=== PATIENT | male | born 1965 | race Caucasian/White ===

== ENCOUNTER 2016-07-16 15:57 | Emergency (ER) | payer MEDICARE, OTHER ==
--- NOTE | ~2016-07-16 | CR72 ---
[facility] A Service of [facility] & [facility] / [facility] RADIOLOGY TEXT RESULTS PATIENT: SHELLY MONZON LOCATION: [facility] : 63 UNIT #: [id number] AGE: [address]: Adrian Boyle MD SEX: M ORDER DR: [id number] [facility] [address] [place], [place] [address] [id number] MR#: [id number] Acc #: [id number] NAME: SHELLY MONZON : 1965 SEX: M STUDY DATE/TIME: 07/16/2016 14:22 UNIT: [facility] ROOM: STUDY DESCRIPTION: CR Chest Single View Portable Attending Physician: Adrian Boyle M.D. Ordering Physician: Adrian Boyle M.D. Primary Care Physician: Vahid Singer M.D. MEDICAL IMAGING REPORT This report is preliminary unless electronic signature is present EXAM Portable chest INDICATIONS Productive cough for days. COMPARISON 09/22/2010 FINDINGS The lungs are well expanded. No acute infiltrate. Heart size is normal. The visualized osseous structures unremarkable. IMPRESSION No active disease Dictated by... Anup Rashid M.D. THIS IS AN ELECTRONICALLY VERIFIED REPORT Anup Rashid M.D. at 07/17/2016 7:54 AM Victor Manuel TD: 07/16/2016 15:19 JOB #: [id number] MEDICAL IMAGING REPORT Page 1 of 1 COPY
--- NOTE | ~2016-07-16 | EKG ---
PATIENT: SHELLY MONZON UNIT #: [id number] Ventricular Rate: 89 BPM Atrial Rate: 89 BPM P-R Interval: 122 ms QRS Duration: 100 ms Q-T Interval: 368 ms QTC Calculation(Bezet): 447 ms P [place]: 90 degrees Calculated R [place]: 62 degrees Calculated T [place]: 88 degrees Diagnosis Line: Normal sinus rhythm Diagnosis Line: Normal ECG Diagnosis Line: When compared with ECG of 23-SEP-2011 21:42, Diagnosis Line: No significant change was found Diagnosis Line: Confirmed by DEJA ESTES MD ([id number]) on 07/17/2016 Diagnosis Line: 5:01:43 AM INTERPRETING MD: FRANKLYN SUTTON
[2016-07-16 15:41] LABS: BASOPHIL# 0.1 X10e3 (0-0.3); BASOPHIL% 0.4 % (0-2.5); EOSINOPHIL# 0.1 X10e3 (0-0.7); EOSINOPHIL% 0.6 % (0.0-7.0); HEMATOCRIT 40.1 % (38.0-50.0); HEMOGLOBIN 13.2 gm/dL (13.0-16.0); LYMPHOCYTE# 1.4 X10e3 (1.0-3.5); MEAN CELL VOLUME 90.5 FL (83-96); MEAN CORPUSCULAR HEMOGLOBIN 29.9 PG (28-34); MEAN PLATELET VOLUME 7.3 FL (6.5-11.5); MONOCYTE% 6.8 % (3.0-12.0); NEUTROPHIL# 12.6 X10e3 (1.5-7.1); NEUTROPHIL% 83.2 % (40-75); PLATELET COUNT 415 X10e3 (140-420); RED BLOOD COUNT 4.43 X10e (3.90-5.60); RED CELL DISTRIBUTION WIDTH 13.7 % (11.0-15.5); WHITE BLOOD COUNT 15.2 X10e3 (4.0-10.5)
[2016-07-16 15:45] LABS: POC - TROPONIN <0.05 ng/mL (<=0.05)
[2016-07-16 15:49] LABS: DIFF IND YES
[2016-07-16 15:57] LABS: ALBUMIN SERUM 3.4 g/dL (3.5-5.0); ALKALINE PHOSPHATASE 109 U/L (32-92); ALT (SGPT) 24 U/L (10-40); AST (SGOT) 20 U/L (10-42); BILIRUBIN,TOTAL 0.4 mg/dL (0.2-2.0); CALCIUM SERUM 9.1 mg/dL (8.4-10.2); CARBON DIOXIDE 28 mmol/L (22-31); CHLORIDE 86 mmol/L (100-111); GLOM FILT RATE Estimated 86.2 mL/min (>60); GLUCOSE FASTING 123 mg/dL (70-110); POTASSIUM 3.6 mmol/L (3.5-5.1); PROTEIN TOTAL SERUM 7.3 g/dL (6.0-8.3)
[~2016-07-16 15:57] MED LIST: ABILIFY PO; CHANTIX PO; DEPAKOTE ER PO; NEURONTIN PO; ZANTAC PO
[2016-07-16 16:01] LABS: BILIRUBIN, DIRECT <0.1 mg/dL (0.0-0.2); BILIRUBIN,INDIRECT 0.3 mg/dL (0.0-0.9); BLOOD UREA NITROGEN <5 mg/dL (9-23); SODIUM 125 mmol/L (135-145)
[2016-07-16 16:18] LABS: PLATELET ESTIMATE NORMAL (NORMAL); RBC NORMAL YES
== END 2016-07-16 16:50 | disposition home or self-care (01) ==
LOC: CED 15:57
PROVIDERS: Emergency Medicine
DX: J20.9 Acute bronchitis, unspecified (principal); E87.6 Hypokalemia; F17.210 Nicotine dependence, cigarettes, uncomplicated; Z88.0 Allergy status to penicillin
CPT/HCPCS: 36415; 71010; 80048; 80076; 82553; 84484; 85025; 93005; 94640; 96361; 96374; 99285; J2930